=== PATIENT | female | born 1985 | race Caucasian/White ===

== ENCOUNTER 2021-02-21 16:56 | Emergency (ER) | payer OTHER ==
[~2021-02-21] VITALS: Ht 162.6 cm; Wt 57.0 kg
[2021-02-21] MEDS ORDERED: ACETAMINOPHEN 325MG TABLET PO ONE (18:15)
[2021-02-21] MEDS ORDERED: KETOROLAC 30MG/ML VIAL IM ONE (18:15)
[2021-02-21 18:35] LABS: CLARITY URINE CLEAR (CLEAR); COLOR URINE YELLOW (YELLOW); KETONES URINE 1+ (NEGATIVE); LEUKOCYTE ESTERASE URINE NEGATIVE (NEGATIVE); NITRITE URINE NEGATIVE (NEGATIVE); OCCULT BLOOD URINE 1+ (NEGATIVE); PH URINE 5.5 (4.5-8.0); PROTEIN URINE NEGATIVE (NEGATIVE); UROBILINOGEN URINE 0.2 E.U./dL (0.2-1.0)
[2021-02-21 20:42] LABS: HEMOGLOBIN. 12.9 g/dL (12.0-16.0); MEAN CORPUSCULAR HEMOGLOBIN 28.6 pg (28.0-32.0); MEAN CORPUSCULAR VOLUME 86.5 fL (81.0-99.0); MEAN PLATELET VOLUME 6.2 fl (7.4-10.4); PLATELET 258 x1000/uL (130-400); RED BLOOD CELL COUNT 4.51 mill/uL (4.2-5.4); RED CELL DISTRIBUTION WIDTH 14.1 % (11.6-14.6)
[2021-02-21 20:48] LABS: CHLORIDE 106 mEq/L (98-107)
[2021-02-21 21:15] LABS: PLATELET ESTIMATE NORMAL
[2021-02-21 22:30] VITALS: BP 122/80
[2021-02-21] MEDS ORDERED: CIPR-263 MT (22:38)
[2021-02-21] MEDS ORDERED: IBUP-2029 MT (22:38)
== END 2021-02-21 22:50 | disposition home or self-care (01) ==
LOC: ER 16:56
DX: N39.0 Urinary tract infection, site not specified (principal); H53.149 Visual discomfort, unspecified
CPT/HCPCS: 36415; 80048; 81003; 85025; 96372; 99283; J1885